=== PATIENT | female | born 1965 | race Caucasian/White ===

== ENCOUNTER → 2023-08-15 12:06 | Outpatient (REF) | payer OTHER, SELFPAY | LOC: HWWDC 12:06 | PROVIDERS: ATTENDING PHYSICIAN Nurse Practitioner; REFERRING PHYSICIAN Obstetrics & Gynecology | DX: Z12.31 Encounter for screening mammogram for malignant neoplasm of breast (principal) | CPT/HCPCS: 77063; 77067 ==

== ENCOUNTER → 2023-12-12 07:36 | Outpatient (REF) | payer OTHER, SELFPAY | LOC: WDC 07:36 | PROVIDERS: ATTENDING PHYSICIAN Nurse Practitioner | DX: R92.333 Mammographic heterogeneous density, bilateral breasts (principal) | CPT/HCPCS: 76641 ==

== ENCOUNTER → 2024-12-26 07:02 | Outpatient (REF) | payer OTHER, SELFPAY | LOC: RAD 07:02 | DX: R51.9 Headache, unspecified (principal); Z86.69 Personal history of other diseases of the nervous system and sense organs; F43.9 Reaction to severe stress, unspecified; J34.89 Other specified disorders of nose and nasal sinuses; E78.2 Mixed hyperlipidemia | CPT/HCPCS: 70450; 93880 ==

== ENCOUNTER → 2025-01-07 11:49 | Outpatient (REF) | payer OTHER, SELFPAY | LOC: RCS 11:49 | DX: R51.9 Headache, unspecified (principal); Z86.69 Personal history of other diseases of the nervous system and sense organs; F43.9 Reaction to severe stress, unspecified; J34.89 Other specified disorders of nose and nasal sinuses; E78.2 Mixed hyperlipidemia | CPT/HCPCS: 93307 ==

== ENCOUNTER → 2025-01-07 18:36 | Outpatient (REF) | payer OTHER, SELFPAY | LOC: MRI 18:36 | DX: I63.81 Other cerebral infarction due to occlusion or stenosis of small artery (principal) | CPT/HCPCS: 70553; A9575 ==